=== PATIENT | male | born 1980 | race Two or more races ===

== ENCOUNTER 2020-01-24 10:09 | Inpatient (IN) | payer OTHER ==
[~2020-01-24] VITALS: Ht 170.2 cm; Wt 96.3 kg
[2020-01-24] MEDS ORDERED: PANTOPRAZOLE 40 MG/10 ML VIAL INJ IV STA (10:48)
[2020-01-24] MEDS ORDERED: ONDANSETRON HCL 4 MG/2 ML VIAL IV ONE (11:00)
[2020-01-24] MEDS ORDERED: MORPHINE SULFATE 4 MG/ML SYR/VIAL IV ONE (11:00)
[2020-01-24 11:13] LABS: Basophils # (auto) 0.1 10 ^3/uL (0-0.2); Basophils % (auto) 0.6 % (0.0-2.0); Eosinophils # (auto) 0.2 10 ^3/uL (0-0.8); Eosinophils % (auto) 1.5 % (0.0-7.0); Hematocrit 47.9 % (41.0-53.0); Hemoglobin 15.5 g/dL (13.5-17.5); Lymphocytes # (auto) 1.6 10 ^3/uL (0.4-5.4); Mean Corpuscular Hemoglobin 27.3 pg (28.0-32.0); Mean Corpuscular Hgb Conc. 32.4 g/dL (32.0-36.0); Mean Corpuscular Volume 84.3 fL (80.0-100.0); Monocytes # (auto) 0.3 10 ^3/uL (0-1.3); Monocytes % (auto) 3.1 % (0.0-12.0); Neutrophils # (auto) 8.3 10 ^3/uL (1.6-8.6); Neutrophils % (auto) 79.8 % (37.0-80.0); Platelet Count (auto) 362 10^3/uL (140-450); Red Blood Cells 5.68 10^6/uL (4.5-5.90); Red Cell Distribution Width 14.3 % (11.8-14.3); White Blood Cell 10.4 10^3/uL (4.4-10.8)
[2020-01-24] MEDS ORDERED: cefTRIAXone 1GM/50ML D5W 50 ML IV ONE ×2 (11:30→16:30)
[2020-01-24 11:43] LABS: Albumin 3.9 g/dL (3.4-5.0); Calcium 8.6 mg/dL (8.5-10.1); Potassium 4.1 mmol/L (3.5-5.1)
[2020-01-24 11:48] LABS: BUN/Creatinine Ratio 11.3; Bilirubin, Total 0.5 mg/dL (0.2-1.0); Total Protein 7.7 g/dL (6.4-8.2)
[2020-01-24] MEDS ORDERED: MORPHINE SULF INJ 2 MG/ML SYRINGE 1ML IV PRN (16:30)
[2020-01-24] MEDS ORDERED: FAMOTIDINE (10MG/ML) 2ML VL IV SCH (16:30)
[2020-01-24] MEDS ORDERED: PROMETHAZINE HCL 25 MG/ML 1ML IV PRN (16:30)
[2020-01-24] MEDS: SODIUM CHLORIDE 0.9% 1,000 ML IV SCH (18:00)
--- NOTE | 2020-01-24 19:52 | NUR ---
MS admit from ER MIGUEL ANGEL ESPINOSA admitted to tele/MS after SBAR received. Patient oriented to Yehuda Leach, primary RN, unit, room, bed, and unit policies regarding patient care and visiting hours. Patient weighed by bedscale and encouraged to call if they need something. All questions and concerns addressed, patient verbalized understanding.
[2020-01-24 22:00] VITALS: BP 125/82
[2020-01-24] MEDS: PANTOPRAZOLE 40 MG/10 ML VIAL INJ IV SCH (22:11)
[2020-01-24] MEDS: metroNIDAZOLE 500MG/100ML 100 ML IV SCH (22:11)
[2020-01-24 23:15] VITALS: BP 125/82
[2020-01-25] MEDS: SODIUM CHLORIDE 0.9% 1,000 ML IV SCH ×4 (02:17→21:41)
[2020-01-25 05:00] VITALS: BP 103/67
[2020-01-25 05:26] LABS: Basophils # (auto) 0 10 ^3/uL (0-0.2); Basophils % (auto) 0.7 % (0.0-2.0); Eosinophils # (auto) 0.2 10 ^3/uL (0-0.8); Eosinophils % (auto) 2.4 % (0.0-7.0); Hematocrit 43.2 % (41.0-53.0); Hemoglobin 14.3 g/dL (13.5-17.5); Lymphocytes # (auto) 2.2 10 ^3/uL (0.4-5.4); Lymphocytes % (auto) 33.8 % (10.0-50.0); Mean Corpuscular Hemoglobin 27.9 pg (28.0-32.0); Mean Corpuscular Hgb Conc. 33.1 g/dL (32.0-36.0); Mean Corpuscular Volume 84.3 fL (80.0-100.0); Monocytes # (auto) 0.5 10 ^3/uL (0-1.3); Neutrophils # (auto) 3.6 10 ^3/uL (1.6-8.6); Neutrophils % (auto) 55.1 % (37.0-80.0); Platelet Count (auto) 290 10^3/uL (140-450); Red Blood Cells 5.13 10^6/uL (4.5-5.90); Red Cell Distribution Width 14.4 % (11.8-14.3); White Blood Cell 6.4 10^3/uL (4.4-10.8)
[2020-01-25 05:45] LABS: Calcium 7.9 mg/dL (8.5-10.1); Potassium 3.6 mmol/L (3.5-5.1)
[2020-01-25 05:51] LABS: Albumin 3.3 g/dL (3.4-5.0); BUN/Creatinine Ratio 10.1; Total Protein 6.4 g/dL (6.4-8.2)
[2020-01-25] MEDS: metroNIDAZOLE 500MG/100ML 100 ML IV SCH ×3 (06:12→21:39)
--- NOTE | 2020-01-25 08:03 | NUR ---
Opening Shift Note Assumed care of patient, awake and alert. No S/S of distress/SOB or pain. Instructed on POC and to call for assist PRN, will continue to monitor for changes Q1hr and PRN. Side rails up x 2, bed locked in lowest position, HOB elevated at least 30 degrees, call light is within reach.
[2020-01-25] MEDS: PANTOPRAZOLE 40 MG/10 ML VIAL INJ IV SCH ×2 (08:52→21:40)
[2020-01-25] MEDS: cefTRIAXone 1GM/50ML D5W 50 ML IV SCH (08:52)
[2020-01-25] MEDS: ENOXAPARIN SOD 40 MG/0.4 ML SYRINGE SC SCH (08:52)
[2020-01-25 09:00] VITALS: BP 111/52
[2020-01-25 13:21] VITALS: BP 135/81
--- NOTE | 2020-01-25 14:38 | NUR ---
ROUNDING DR. BRENNAN ROUNDING WITH PATIENT AT THIS TIME. NO NEW ORDERS AT THIS TIME.
[2020-01-25 17:10] VITALS: BP 139/82
--- NOTE | 2020-01-25 19:00 | NUR ---
CLOSING SHIFT NOTE ENDORSED CARE TO NOC SHIFT RN
--- NOTE | 2020-01-25 19:00 | NUR ---
Opening Shift Note Assumed care of patient, awake and alert. No S/S of distress/SOB or pain. Instructed on POC and to call for assist PRN, will continue to monitor for changes Q1hr and PRN.
[2020-01-25 20:00] VITALS: BP 108/72
[2020-01-25 21:53] VITALS: BP 108/72
[2020-01-25 23:58] LABS: Urine Bacteria FEW /hpf (None Seen); Urine Blood Negative /uL (Negative); Urine Mucus FEW (None Seen); Urine WBC 1 /hpf (0 - 3)
[2020-01-26 05:44] VITALS: BP 105/62
[2020-01-26] MEDS: metroNIDAZOLE 500MG/100ML 100 ML IV SCH ×3 (06:20→21:41)
[2020-01-26 07:30] LABS: Basophils # (auto) 0 10 ^3/uL (0-0.2); Basophils % (auto) 0.8 % (0.0-2.0); Eosinophils # (auto) 0.2 10 ^3/uL (0-0.8); Eosinophils % (auto) 3.2 % (0.0-7.0); Hematocrit 42.8 % (41.0-53.0); Hemoglobin 14.2 g/dL (13.5-17.5); Lymphocytes # (auto) 1.9 10 ^3/uL (0.4-5.4); Lymphocytes % (auto) 31.5 % (10.0-50.0); Mean Corpuscular Hemoglobin 27.9 pg (28.0-32.0); Mean Corpuscular Hgb Conc. 33.2 g/dL (32.0-36.0); Mean Corpuscular Volume 83.8 fL (80.0-100.0); Monocytes # (auto) 0.4 10 ^3/uL (0-1.3); Monocytes % (auto) 6.1 % (0.0-12.0); Neutrophils # (auto) 3.5 10 ^3/uL (1.6-8.6); Neutrophils % (auto) 58.4 % (37.0-80.0); Nucleated Red Blood Cells % 0.2 %; Platelet Count (auto) 307 10^3/uL (140-450); Red Blood Cells 5.11 10^6/uL (4.5-5.90); Red Cell Distribution Width 14.5 % (11.8-14.3)
[2020-01-26 07:48] LABS: Calcium 8.1 mg/dL (8.5-10.1); Potassium 3.6 mmol/L (3.5-5.1)
[2020-01-26 07:54] LABS: INR 1.07 (0.9-1.15)
[2020-01-26] MEDS: SODIUM CHLORIDE 0.9% 1,000 ML IV SCH ×2 (08:17→17:27)
[2020-01-26 09:00] VITALS: BP 116/78
[2020-01-26] MEDS: ENOXAPARIN SOD 40 MG/0.4 ML SYRINGE SC SCH (09:16)
[2020-01-26] MEDS: cefTRIAXone 1GM/50ML D5W 50 ML IV SCH (09:16)
[2020-01-26] MEDS: PANTOPRAZOLE 40 MG/10 ML VIAL INJ IV SCH ×2 (09:16→21:41)
--- NOTE | 2020-01-26 12:43 | NUR ---
Nutrition Assessment Notes Please refer to link for full assessment notes. Est Energy needs: 9415-9163 kcals (17-20 kcal/kgBW) Est Protein needs: 77-97 gms/day (0.8-1.0 gm/kgBW) Will continue to monitor and reassess prn. Addendum: 01/26/20 at [address] Amended: Links added.
[2020-01-26 12:55] VITALS: BP 113/78
[2020-01-26 16:53] VITALS: BP 113/87
[2020-01-26 20:00] VITALS: BP 114/71
[2020-01-26 22:00] VITALS: BP 114/71
[2020-01-27] MEDS: SODIUM CHLORIDE 0.9% 1,000 ML IV SCH ×2 (04:00→13:43)
[2020-01-27 05:46] VITALS: BP 112/67
[2020-01-27 05:56] LABS: Basophils # (auto) 0.1 10 ^3/uL (0-0.2); Basophils % (auto) 0.9 % (0.0-2.0); Eosinophils # (auto) 0.3 10 ^3/uL (0-0.8); Eosinophils % (auto) 4.5 % (0.0-7.0); Hematocrit 41.8 % (41.0-53.0); Hemoglobin 14.1 g/dL (13.5-17.5); Lymphocytes # (auto) 1.7 10 ^3/uL (0.4-5.4); Lymphocytes % (auto) 27.8 % (10.0-50.0); Mean Corpuscular Hemoglobin 28.4 pg (28.0-32.0); Mean Corpuscular Hgb Conc. 33.7 g/dL (32.0-36.0); Mean Corpuscular Volume 84.1 fL (80.0-100.0); Monocytes # (auto) 0.5 10 ^3/uL (0-1.3); Monocytes % (auto) 7.6 % (0.0-12.0); Neutrophils # (auto) 3.7 10 ^3/uL (1.6-8.6); Neutrophils % (auto) 59.2 % (37.0-80.0); Nucleated Red Blood Cells % 0.1 %; Platelet Count (auto) 287 10^3/uL (140-450); Red Blood Cells 4.97 10^6/uL (4.5-5.90); Red Cell Distribution Width 14.4 % (11.8-14.3); White Blood Cell 6.2 10^3/uL (4.4-10.8)
[2020-01-27 06:11] LABS: INR 1.08 (0.9-1.15); Partial Thromboplastin Time 28.1 sec (23.0-31.2)
[2020-01-27] MEDS: metroNIDAZOLE 500MG/100ML 100 ML IV SCH ×3 (06:12→21:35)
[2020-01-27 06:19] LABS: Potassium 3.8 mmol/L (3.5-5.1)
[2020-01-27 06:23] LABS: BUN/Creatinine Ratio 5.8
--- NOTE | 2020-01-27 09:02 | NUR ---
PT TAKEN TO PRE-OP; TRANSPORTED VIA BED. NO S/S OF DISTRESS.
[2020-01-27] MEDS: ENOXAPARIN SOD 40 MG/0.4 ML SYRINGE SC SCH (09:08)
[2020-01-27] MEDS: cefTRIAXone 1GM/50ML D5W 50 ML IV SCH (09:08)
[2020-01-27 09:25] VITALS: BP 130/78
[2020-01-27] MEDS ORDERED: POVIDONE IODINE 10 % TOPICAL OINT 30GM TOP ONE (09:44)
[2020-01-27] MEDS ORDERED: SUCCINYLCHOLINE CHLORIDE 20 MG/ML 10ML VIAL IV ONE (09:52)
[2020-01-27] MEDS ORDERED: LIDOCAINE 1% (LOCAL ANESTH.) PF 5ml SDV ONE (09:52)
[2020-01-27] MEDS ORDERED: MIDAZOLAM HCL 1MG/1ML-2 ML VIAL ONE (09:54)
[2020-01-27] MEDS ORDERED: PROPOFOL 10 MG/ML 20 ML IV ONE (09:56)
[2020-01-27] MEDS ORDERED: ROCURONIUM 10MG/ML 10ML VIAL IV ONE (09:56)
[2020-01-27] MEDS ORDERED: METOCLOPRAMIDE HCL 5MG/ml INJ 2ml VIAL ONE (09:56)
[2020-01-27] MEDS ORDERED: fentaNYL CITRATE 100 MCG/2 ML VL ONE (10:10)
[2020-01-27] MEDS ORDERED: NALOXONE HCL 0.4 MG/ML VIAL IV PRN (10:30)
[2020-01-27] MEDS ORDERED: HYDROmorphone HCL 2 MG/ML VL IV PRN ×2 (10:30)
[2020-01-27] MEDS ORDERED: METOCLOPRAMIDE HCL 5MG/ml INJ 2ml VIAL IV PRN (10:30)
[2020-01-27] MEDS ORDERED: KETOROLAC TROMETH 30 MG/ML 1ML VIAL ONE (10:47)
[2020-01-27] MEDS ORDERED: GLYCOPYRROLATE 0.2 MG/ML 1ML VIAL ONE (10:49)
[2020-01-27] MEDS ORDERED: NEOSTIGMINE 1 MG/ML INJ (10mg/10ML VIAL) ONE (10:49)
--- NOTE | 2020-01-27 12:10 | NUR ---
PT BACK FROM PROCEDURE, AWAKE, ALERT, ORIENTED x4. EFFORTLESS BREATHING ON ROOM AIR. ABDOMEN SOFT, DISTENDED, 3 INCISIONS PRESENT WITH BEENA DRAIN IN PLACE, ABDOMINAL BINDER IN PLACE. REPORTS PAIN TO Sx SITE AT 8/10. WILL MEDICATE PER EMAR. BED LOCKED AND IN LOWEST POSITION, CALL LIGHT WITHIN REACH. WILL CONTINUE TO MONITOR.
[2020-01-27] MEDS: MORPHINE SULF INJ 2 MG/ML SYRINGE 1ML IV PRN ×2 (12:26→17:55)
[2020-01-27] MEDS: PANTOPRAZOLE 40 MG/10 ML VIAL INJ IV SCH ×2 (12:26→21:35)
[2020-01-27 13:00] VITALS: BP 153/91
--- NOTE | 2020-01-27 14:40 | NUR ---
INCENTIVE SPIROMETER PROVIDED, EDUCATION ON USAGE PROVIDED, PT RETURNED DEMONSTRATION AND COMPLIANCE WITH USAGE.
[2020-01-27 16:56] VITALS: BP 116/81
--- NOTE | 2020-01-27 18:31 | NUR ---
PATIENT IN LOW FOWLERS. PT REPORTS COMFORT POST MEDICATION ADMINISTRATION. BEENA DRAIN IN PLACE, SEROUS-SANGUINEOUS DRAINAGE IN COLLECTING BULB. BED LOCKED AND IN LOWEST POSITION, CALL LIGHT WITHIN REACH.
[2020-01-27 22:08] VITALS: BP 100/61
[2020-01-28] MEDS: SODIUM CHLORIDE 0.9% 1,000 ML IV SCH ×2 (00:17→10:17)
[2020-01-28] MEDS: MORPHINE SULF INJ 2 MG/ML SYRINGE 1ML IV PRN (01:34)
[2020-01-28 05:00] VITALS: BP 101/66
[2020-01-28] MEDS: metroNIDAZOLE 500MG/100ML 100 ML IV SCH ×2 (05:20→14:00)
[2020-01-28 06:38] LABS: Basophils # (auto) 0 10 ^3/uL (0-0.2); Basophils % (auto) 0.7 % (0.0-2.0); Eosinophils # (auto) 0.1 10 ^3/uL (0-0.8); Hemoglobin 13.6 g/dL (13.5-17.5); Lymphocytes # (auto) 1.8 10 ^3/uL (0.4-5.4); Lymphocytes % (auto) 26.8 % (10.0-50.0); Mean Corpuscular Hemoglobin 27.9 pg (28.0-32.0); Mean Corpuscular Hgb Conc. 33.1 g/dL (32.0-36.0); Mean Corpuscular Volume 84.2 fL (80.0-100.0); Monocytes # (auto) 0.5 10 ^3/uL (0-1.3); Monocytes % (auto) 7.5 % (0.0-12.0); Neutrophils # (auto) 4.3 10 ^3/uL (1.6-8.6); Nucleated Red Blood Cells % 0.1 %; Platelet Count (auto) 273 10^3/uL (140-450); Red Blood Cells 4.87 10^6/uL (4.5-5.90); Red Cell Distribution Width 14.4 % (11.8-14.3); White Blood Cell 6.8 10^3/uL (4.4-10.8)
[2020-01-28 07:02] LABS: Potassium 3.6 mmol/L (3.5-5.1)
[2020-01-28 07:15] LABS: Albumin 2.9 g/dL (3.4-5.0); BUN/Creatinine Ratio 5.8; Bilirubin, Total 0.6 mg/dL (0.2-1.0); Calcium 7.7 mg/dL (8.5-10.1); Total Protein 6.1 g/dL (6.4-8.2)
[2020-01-28] MEDS: ENOXAPARIN SOD 40 MG/0.4 ML SYRINGE SC SCH (09:39)
[2020-01-28] MEDS: PANTOPRAZOLE 40 MG/10 ML VIAL INJ IV SCH (09:39)
[2020-01-28] MEDS: cefTRIAXone 1GM/50ML D5W 50 ML IV SCH (09:40)
[2020-01-28 09:51] VITALS: BP 116/66
--- NOTE | 2020-01-28 12:13 | NUR ---
Nutrition Followup Notes Wt: 96.3 kg pt was sleeping with no family by bedside. per records pt s/p lap denita 01/26. pt is now advanced to full liq diet with adequate PO of 75% x 4 (on cld) per RN doc Est Energy needs: 1965-6240 kcals (17-20 kcal/kgBW), Est Protein needs: 77-97 gms/day (0.8-1.0 gm/kgBW). Will continue to monitor and reassess prn. LABS: CA 7.7 L, ALB 2.9 L. GI: Pt has no BM reported per RN doc BS: 17 mod risk. Refer to wound assessment report for full details. PES: Obesity aeb 144% IBW and BMI of 33.4 kg/m2 r/t energy intake in excess of energy needs Comments: Continue to monitor po intake, labs, skin. F/u mod 3-5 days Rec: 1) Continue to closely monitor pt PO intake to meet at least 75% of meals. 2) Gradually advance pt to oral diet when medically feasible and as tolerated. 3) Refer pt to RD for nutrition education upon D/C 4) Continue current plan of care
[2020-01-28 12:59] VITALS: BP 140/89
--- NOTE | 2020-01-28 15:46 | NUR ---
Surgeon Dr Ziegler aware of patient's status. Pt tolerating diet well and advanced to soft diet and given a turkey sandwich. Pt denies n/v. Pt denies abd pain. DC clearance from surgeon Dr Ziegler obtained and pt instructed to f/u as outpatient for BEENA drain removal on 02/11/2020 at 10:15 am.
[2020-01-28] MEDS ORDERED: PANT40TA2 PO (16:22)
[2020-01-28] MEDS ORDERED: METR500T PO (16:22)
[2020-01-28] MEDS ORDERED: LEVO500T21 PO (16:22)
[2020-01-28 16:57] VITALS: BP 134/73
--- NOTE | 2020-01-28 19:10 | NUR ---
Patient care endorsed to Smita rn. Patient sitting up in bed no acute distress or sob noted. Call light within reach. Patient instructed on BEENA drain at home including how to empty it he returned demonstration. Patient tolerated dinner well and will be discharged as ordered by shahida Ordoñez. New prescription meds delivered to bedside and patient instructed on use, s/e, s/s and contraindications he verbalized understanding. No distress or sob noted at this time.
[2020-01-28 19:25] VITALS: BP 120/68
--- NOTE | 2020-01-28 19:30 | NUR ---
RECEIVED PATIENT IN BED, AAOX4. PATIENT IS WAITING TO BE DISCHARGED. HAD A DC ORDER SINCE 1450 IN THE AFTERNOON. EXPLAINED TO PATIENT THAT I JUST GOT IN AND WILL DISCHARGE HIM PER MD ORDER. AFEBRILE. COMPLAINED OF MILD ABDOMINAL PAIN, BUT TOLERABLE FOR MOW. PATIENT HAS THE PRESCRIPTIONS. DC INSTRUCTION GIVEN TO PATIENT INCLUDING FOLLOW UP APPOINTMENTS WITH DOCTORS. PATIENT SHOWED UNDERSTANDING.
[2020-01-28 20:00] VITALS: BP 120/70
--- NOTE | 2020-01-28 20:10 | NUR ---
PATIENT IS WHEELED TO THE LOBBY BY JESSY BONILLA. IV IS OUT. ARM BANDS ARE REMOVED. BEENA DRAIN IS INTACT. VITALS ARE STABLE. BP= 120/70 HR= 70 RR= 18 02= 100% T= 97.4 PATIENT IS STABLE AT DISCHARGE. ADVISED PATIENT TO CALL 911 OR GO TO THE NEAREST ER IF CONDITION DOES NOT IMPROVE.
== END 2020-01-28 20:10 | disposition home or self-care (01) | DRG 263 ==
LOC: ER 10:09 → OVERFLOW 10:10 → WEST WING 19:50
PROVIDERS: ADMIT Internal Medicine; ATTEND Internal Medicine
PROC: 0FT44ZZ Resection of Gallbladder, Percutaneous Endoscopic Approach (ICD-10-PCS; principal; 2020-01-27 09:51)
DX: K80.12 Calculus of gallbladder with acute and chronic cholecystitis without obstruction (principal); E66.9 Obesity, unspecified; Z68.33 Body mass index [BMI] 33.0-33.9, adult
CPT/HCPCS: 36415; 71045; 76705; 78226; 80048; 80053; 81001; 82150; 83690; 85025; 85610; 85730; 86850; 86900; 86901; 87040; 96365; 96375; C9113; G0378; J0330; J0696; J1885; J2250; J2704; J3490